=== PATIENT | male | born 1980 | race Caucasian/White ===

== ENCOUNTER → 2016-05-11 | Outpatient (CLI) | payer OTHER ==
[~2016-05-11] MED LIST: BUPIVACAINE HCL 0.25% 30 ML VIAL As Ordered ONE; ISOVUE-M 300 61% 15ML VIAL (Q9967) As Ordered ONE; LIDOCAINE 1% SDV INJ 30 ML VIAL As Ordered ONE; TRIAMCINOLONE ACETONIDE SUSP 40 MG/ML VIAL (J3301) As Ordered ONE
--- NOTE | 2016-05-19 00:35 | ECWPNPC ---
PATIENT NAME: MAT SOLORZANO : 1980 GENDER: MALE VISIT DATE: 05/11/2016 DISCHARGE DATE: 05/11/16 1135 VISIT LOCKED DATE TIME: PHYSICIAN: LISETTE WILSON RESOURCE: LISETTE WILSON REASON FOR APPOINTMENT 1. GENITOFEMORAL NB HISTORY OF PRESENT ILLNESS HISTORY OF PRESENT ILLNESS: PAIN THE PATIENT DESCRIBES THE PAIN... THE PATIENT DESCRIBES THE PAIN... PAIN THE PATIENT DESCRIBES THE PAIN... THE PATIENT DESCRIBES THE PAIN... FALL RISK SCREENING: SCREENING :NO FALLS IN THE PAST YEAR :NO FALLS IN THE PAST YEAR SCREENING :NO FALLS IN THE PAST YEAR :NO FALLS IN THE PAST YEAR CURRENT MEDICATIONS TAKING GABAPENTIN 800 MG TABLET 1 TABLET ORALLY TWO TIMES A DAY, NOTES: 05/11 5AM TAKING SOPHIE 180 MG TABLET 1 TABLET NEEDED ORALLY ONCE A DAY, NOTES: 05/11 5AM TAKING TYLENOL 1-2 TABS ORAL DAILY NEEDED, NOTES: 05/10 8PM TAKING CIALIS 5 MG TABLET 1 TABLET ORALLY DAILY, NOTES: 05/09 5AM TAKING LIDOCAINE 4 % PATCH EXTERNALLY NEEDED, NOTES: 05/09 5PM TAKING CELEBREX 100 MG CAPSULE 1 CAPSULE ORALLY TWICE A DAY, NOTES: 05/11 5AM NOT-TAKING MOBIC 15 MG TABLET 1 TABLET ORALLY ONCE A DAY MEDICATION LIST REVIEWED AND RECONCILED WITH THE PATIENT PAST MEDICAL HISTORY DIET-CONTROLLED CHOLESTEROL KIDNEY STONES BACK PAIN NECK PAIN ALLERGIES N.K.D.A. SOCIAL HISTORY GENERAL: TOBACCO USE ARE YOU A:NONSMOKER ARE YOU A:NONSMOKER LEARNING BARRIERS / SPECIAL NEEDS ORIENTED TO PLAN OF CARE: PATIENT, PAIN MANAGEMENT PATIENT, ORIENTED TO PLAN OF CARE: PATIENT, PAIN MANAGEMENT PATIENT, ORIENTED TO PLAN OF CARE: PATIENT, PAIN MANAGEMENT PATIENT, ORIENTED TO PLAN OF CARE: PATIENT, PAIN MANAGEMENT PATIENT. NEW PATIENT PAIN DIARY TODAY'S VISITNOTES FROM 0-10, WHAT LEVEL IS YOUR PAIN TODAY?0 TODAY'S VISITNOTES FROM 0-10, WHAT LEVEL IS YOUR PAIN TODAY?0 PAIN CLINIC PFS, CLERGY, PUBLIC HEALTH REFERRALS PFS REFERRAL NEEDED?NO CLERGY REFERRAL NEEDED?NO PUBLIC HEALTH REFERRAL NEEDED?NO WAS THE PROVIDER NOTIFIED OF ANY PERTINENT INFO?NO PFS REFERRAL NEEDED?NO CLERGY REFERRAL NEEDED?NO PUBLIC HEALTH REFERRAL NEEDED?NO WAS THE PROVIDER NOTIFIED OF ANY PERTINENT INFO?NO PFS REFERRAL NEEDED?NO CLERGY REFERRAL NEEDED?NO PUBLIC HEALTH REFERRAL NEEDED?NO WAS THE PROVIDER NOTIFIED OF ANY PERTINENT INFO?NO PFS REFERRAL NEEDED?NO CLERGY REFERRAL NEEDED?NO PUBLIC HEALTH REFERRAL NEEDED?NO WAS THE PROVIDER NOTIFIED OF ANY PERTINENT INFO?NO REVIEW OF SYSTEMS CONSTITUTIONAL: ANY CHANGE IN YOUR MEDICAL CONDITION? NO, NO . CHILLS NO, NO . FEVER NO, NO . INFECTION: DO YOU HAVE NEW INFECTIONS? NO, NO . DO YOU HAVE HISTORY OF MRSA? NO, NO . MUSCULOSKELETAL: ANY NEW PATTERNS OF PAIN OR NUMBNESS? NO, NO . GASTROENTEROLOGY: ANY NEW CHANGE IN BOWEL CONTROL? NO, NO . GENITOURINARY: ANY NEW CHANGE IN BLADDER CONTROL? NO, NO . IS THERE A CHANCE YOU COULD BE ? NO, NO . HEMATOLOGY/LYMPH: DO YOU TAKE ANY BLOOD THINNERS? (FOR EXAMPLE- COUMADIN, PLAVIX, AGGRENOX, PLATEL, PRADAXA, OR XARELTO) NO, NO . WHEN WAS YOUR LAST DOSE? DATE: TIME: , DATE: TIME: . NEUROLOGY: HAVE YOU FALLEN IN THE PAST 6 MONTHS? NO, NO . ANY NEW EXTREMITY NUMBNESS OR WEAKNESS? NO, NO . CARDIOLOGY: DO YOU HAVE A PACEMAKER OR DEFIBRILLATOR? NO, NO . RESPIRATORY: HAVE YOU BEEN SICK IN THE PAST WEEK? NO, NO . FEVER NO, NO . FLU LIKE SYMPTOMS? NO, NO . COUGH NO, NO . INTEGUMENTARY: DO YOU HAVE ANY RASHES OR OPEN SORES? NO, NO . ALLERGIC/IMMUNO: ARE YOU ALLERGIC TO SHELLFISH OR IV DYE? NO, NO . ANY NEW ALLERGIES? NO, NO . PSYCHIATRIC: DO YOU HAVE THOUGHTS OF HURTING YOURSELF OR SOMEONE ELSE? NO, NO . ARE YOU ABUSED, NEGLECTED, OR IN AN UNSAFE ENVIRONMENT? NO, NO . ENDOCRINOLOGY: ARE YOU DIABETIC? NO, NO . OTHER: DO YOU NEED ANY PRESCRIPTIONS? NO, NO . IF YES, PLEASE LIST: ____, ____ . ANY NEW PROBLEMS WITH YOUR MEDICATIONS? NO, NO . WHEN DID YOU LAST EAT? 05/10 NIGHT, ____ . WHEN DID YOU LAST DRINK? 05/11 0500, ____ . WHAT DID YOU LAST DRINK? BLACK COFFEE, ____ . NAME OF PERSON DRIVING YOU HOME? MARIAN, ____ . DO YOU HAVE ANY OTHER QUESTIONS OR CONCERNS NO, FLU SHOT RECEIVED IN JANUARY 2016., NO . REVIEWED BY: PROVIDER: , . VITAL SIGNS WT 195 LBS, HT 73", BMI 25.72 INDEX, BP 127/88 MM HG, HR 69 /MIN, RR 16 /MIN, TEMP 96.0 F, OXYGEN SAT % 98, SAFE IN ENV? (Y/N) Y, NA INITIALS TL 0932, REVIEWED BY: DS. 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 LISETTE WILSONASSISTANT: NONEANESTHESIA: LOCALPRE PROCEDURE NOTE: THE PATIENT HAS NEURALGIA ON THE LATERAL ASPECT OF THE RIGHT AND LEFT THIGH. PATIENT HAS HISTORY OF MERALGIA PARESTHETICA, THE PAIN IS FOLLOWING THE DISTRIBUTION OF THE RIGHT AND LEFT LATERAL FEMORAL CUTANEOUS NERVE. I EVALUATED THE PATIENT AND REVIEWED THE CHART. I REVIEWED THE RISKS, ALTERNATIVES, AND BENEFITS ASSOCIATED WITH THE RIGHT AND LEFT LATERAL FEMORAL CUTANEOUS NERVE BLOCK PROCEDURE, WITH THE PURPOSE OF PROVING ANALGESIA OVER THE AFFECTED AREA. THE PATIENT WOULD LIKE TO PROCEED AND GIVE CONSENT TO PERFORM THE PROCEDURE. THE PATIENT DENIES UNEXPLAINABLE WEIGHT LOSS, FEVER, CHILLS, OR NEW CHANGES IN URINARY OR BOWEL CONTROL. DESCRIPTION OF PROCEDURE: THE PATIENT WAS BROUGHT TO THE PROCEDURE ROOM AND PLACED IN THE SUPINE POSITION. THE RIGHT AND LEFT POSTERIOR ASPECT OF THE ILIAGIAN WAS CLEANED WITH BUTADIENE SOLUTION AND DRAPED ASEPTICALLY. PROCEDURE WAS DONE UNDER STANDARD STERILE CONDITIONS. THE TARGET POINT WAS SELECTED 2 CM MEDIAL AND CAUDAL RIGHT OF THE SUPERIOR ANTERIOR ILIAC SPINE. I USED A NERVE STIMULATOR FIRST AT 1.O VOLTS AND REDUCED TO 0.5 VOLTS WITH PATIENT FEEDBACK, PATIENT WAS HAVING APPROPRIATE STIMULATION OVER THE SELECTED AREA. I USED A 25-GAUAGE NEEDLE, 15 CCS OF BUPIVACAINE 0.125% AND KENALOG 20 MILLIGRAMS WAS INJECTED. THEN I PROCEEDED TO THE OTHER SIDE OF THE BODY. TARGET POINT WAS SELECTED 2 CM MEDIAL AND CAUDAL RIGHT SUPERIOR ANTERIOR ILIAC SPINE. I USED A 25-GAUAGE NEEDLE, 15 CCS OF BUPIVACAINE 0.125% AND KENALOG 20 MILLIGRAMS WAS INJECTED. THERE WAS NO EVIDENCE OF BLOOD, PARESTHESIA OR CEREBROSPINAL FLUID DURING THE PROCEDURE. THE PATIENT WAS SENT TO THE RECOVERY ROOM. THE PATIENT WAS MOVING THE EXTREMITIES AND DOING WELL. THERE WAS NO COMPLICATION DURING THE PROCEDURE.POST PROCEDURE NOTE: THE PATIENT WILL BE SEEN IN A FOLLOW UP IN THE NEXT FEW WEEKS. PATIENT WILL BE REFERRED TO [facility] FOR A CRYOABLATION THERAPY CONSULT. INSTRUCTIONS WERE GIVEN, QUESTIONS WERE ANSWERED, AND THE PATIENT EXPRESSED UNDERSTANDING AND AGREES WITH THE PLAN. INSTRUCTIONS WERE GIVEN, QUESTIONS WERE ANSWERED, PATIENT REPORTS UNDERSTANDING AND AGREES WITH THE PLAN. I, KARIME DAVE, DOCUMENTED THE ABOVE INFORMATION ACTING A SCRIBE FOR DR. WILSON. I HAVE REVIEWED THE ABOVE DOCUMENT, WRITTEN BY KARIME DAVE SCRIBE AND I VERIFY THAT IT IS ACCURATE. DIAGNOSTIC IMAGING [facility] FLUORO GUIDANCE (PAIN) (ORDER CANCELLED)[id number] PROCEDURE CODES 98255 N BLOCK OTHER PERIPHERAL FOLLOW UP 3 WEEKS ELECTRONICALLY SIGNED BY LISETTE WILSON MD ON 05/18/2016 AT 06:21 PM EST DISCLAIMER : THIS IS A VISIT SUMMARY EXTRACTED FROM THE [employer] CHART. IT IS NOT A COPY OF THE [employer] PROGRESS NOTE. MTDD
== END ==
LOC: M PAIN 09:40
PROVIDERS: ATTEND Anesthesiology
DX: G57.13 Meralgia paresthetica, bilateral lower limbs (principal); E11.9 Type 2 diabetes mellitus without complications; Z79.899 Other long term (current) drug therapy
CPT/HCPCS: 64450; J3301; Q9967

== ENCOUNTER → 2016-05-26 | Outpatient (CLI) | payer OTHER ==
--- NOTE | 2016-06-15 01:23 | ECWPNPC ---
PATIENT NAME: MAT GARY : 1980 GENDER: MALE VISIT DATE: 05/26/2016 DISCHARGE DATE: 05/26/16 1536 VISIT LOCKED DATE TIME: PHYSICIAN: SMITH ECHEVERRIA RESOURCE: SMITH ECHEVERRIA REASON FOR APPOINTMENT 1. POST PROCEDURE-FEMORAL NERVE BLOCK HISTORY OF PRESENT ILLNESS TODAY'S VISIT: NOTES: S/P BILATERAL GENITOFEMORAL NERVE BLOCK COMPLETED ON 05/15/16.HAD SOME INCREAS IN PAIN IMMEDIATELY AFTER PROCEDURE AND HAD NUMBNESS INTO INNER THIGH FOR FIRST DAY AFTER PROCEDURE.HAD A FALL HAD TROUBLE RAISING LEFT LEG. THIS IMPROVED AFTER 24 HOURS. RATES PAIN TODAY 0/10. . CURRENT MEDICATIONS TAKING GABAPENTIN 800 MG TABLET 1 TABLET ORALLY TWO TIMES A DAY TAKING SOPHIE 180 MG TABLET 1 TABLET NEEDED ORALLY ONCE A DAY TAKING CIALIS 5 MG TABLET 1 TABLET ORALLY DAILY TAKING LIDOCAINE 4 % PATCH EXTERNALLY NEEDED ON 12 HOURS OFF 12 HOURS TAKING CELEBREX 100 MG CAPSULE 1 CAPSULE ORALLY TWICE A DAY NOT-TAKING TYLENOL 1-2 TABS ORAL DAILY NEEDED NOT-TAKING MOBIC 15 MG TABLET 1 TABLET ORALLY ONCE A DAY MEDICATION LIST REVIEWED AND RECONCILED WITH THE PATIENT PAST MEDICAL HISTORY DIET-CONTROLLED CHOLESTEROL KIDNEY STONES BACK PAIN NECK PAIN ALLERGIES ENVIRONMENTAL: WHEEZING, NASAL CONGESTION: ALLERGY SURGICAL HISTORY LEFT CLAVICLE REPAIR 10/2014 LEFT CLAVICLE HARDWARE REMOVED 05/2015 VASECTOMY HOSPITALIZATION/MAJOR DIAGNOSTIC PROCEDURE SURGERIES REVIEW OF SYSTEMS FOLLOW-UP ROS: GENERAL: NOTES SIGNIFICANT FATIGUE . VITAL SIGNS WT 195 LBS, HT 73", BMI 25.72 INDEX, BP 139/81 MM HG, HR 105 /MIN, RR 18 /MIN, TEMP 95.0 F, OXYGEN SAT % 97%, NA INITIALS SC14:37, REVIEWED BY: LS05/26/16 1448 HEART RATE RECHECKED 96/MINUTE, REGULAR. STATES IS SLEEP-DEPRIVED AND HAS BEEN. EXAMINATION GENERAL EXAMINATION: GENERAL APPEARANCE:WELL GROOMED. PSYCHALERT , APPROPRIATE MOOD AND AFFECT , ORIENTED X 3 , GOOD EYE CONTACT. HEENT:NORMOCEPHALIC, NO LYMPHADENOPATHY, NO THYROMEGLY. LUNGS:CLEAR TO AUSCULTATION BILATERALLY, NO WHEEZES, RALES, OR RHONCHI. HEART:HEART RATE REGULAR, NORMAL S1S2, NO MURMURS, CLICK OR RUBS. ABDOMEN:SOFT AND NOT TENDER, BOWEL SOUNDS: NORMAL AND PRESENT IN ALL QUADRANTS. NO ILIOINGUINAL PAIN. MUSCULOSKELETAL:MUSCLE STRENGTH TESTING 5/5 BILATERAL LOWER EXTREMITIES. HOUT DIFFICULTY. MILD TENDERNESS WITH PALPATION OVER RIGHT SIJ. POINT TENDERNESS OVER RIGHT INGUINAL REGION. HYPERSENSITIVITY OVER RIGHT> LEFT LATERAL THIGH WITH AREAS OF PATCHY DECREASED SENSATION PARTICULARLY ALONG DISTAL QUADRICEP. . ASSESSMENTS MERALGIA PARESTHETICA OF BOTH LOWER EXTREMITIES - G57.13 (PRIMARY) TREATMENT MERALGIA PARESTHETICA OF BOTH LOWER EXTREMITIES FEMORAL NERVE SMIHT CHADWICK 05/26/2016 3:16:39 PM > BILATERAL GENITOFEMORAL BLOCK PREVENTIVE MEDICINE PAIN CLINIC TEACHING: PROCEDURE TEACHING PRE PROCEDURE INSTRUCTIONS REVIEWED WITH PT. VERBALIZED UNDESTANDING.. PROCEDURE CODES FA211 ESTABILISHED PATIENT [facility] FACILITY CHARGE DISPOSITION & COMMUNICATION FOLLOW UP SCEDULE FOR BLOCK 06/08 OR (REASON: HAS AUTH FOR GENITOFEM BLOCK BILATERAL) ELECTRONICALLY SIGNED BY RACHEAL SHEPHERD ON 06/14/2016 AT 11:53 AM EST DISCLAIMER : THIS IS A VISIT SUMMARY EXTRACTED FROM THE [employer] CHART. IT IS NOT A COPY OF THE [employer] PROGRESS NOTE. EPIFANIO
== END ==
LOC: M PAIN 14:40
PROVIDERS: ATTEND Nurse Practitioner Family
DX: G57.13 Meralgia paresthetica, bilateral lower limbs (principal); M54.2 Cervicalgia; G89.29 Other chronic pain; Z79.899 Other long term (current) drug therapy; Z91.09 Other allergy status, other than to drugs and biological substances

== ENCOUNTER → 2016-06-01 | Outpatient (CLI) | payer OTHER ==
--- NOTE | 2016-06-10 23:28 | ECWPNPC ---
PATIENT NAME: MAT GARY : 1980 GENDER: MALE VISIT DATE: 06/01/2016 DISCHARGE DATE: 06/01/16 1620 VISIT LOCKED DATE TIME: PHYSICIAN: LISETTE WILSON RESOURCE: LISETTE WILSON REASON FOR APPOINTMENT 1. BILATERAL GENITOFEMORAL BLOCK HISTORY OF PRESENT ILLNESS HISTORY OF PRESENT ILLNESS: PAIN THE PATIENT DESCRIBES THE PAIN... FALL RISK SCREENING: SCREENING :NO FALLS IN THE PAST YEAR CURRENT MEDICATIONS TAKING GABAPENTIN 800 MG TABLET 1 TABLET ORALLY TWO TIMES A DAY, NOTES: 06/01/16@0530 TAKING SOPHIE 180 MG TABLET 1 TABLET NEEDED ORALLY ONCE A DAY, NOTES: 06/01/16@0530 TAKING CIALIS 5 MG TABLET 1 TABLET ORALLY DAILY, NOTES: 05/31/16@0530 TAKING LIDOCAINE 4 % PATCH EXTERNALLY NEEDED ON 12 HOURS OFF 12 HOURS, NOTES: 1 WEEK AGO TAKING CELEBREX 100 MG CAPSULE 1 CAPSULE ORALLY TWICE A DAY, NOTES: 06/01/16@0530 NOT-TAKING TYLENOL 1-2 TABS ORAL DAILY NEEDED NOT-TAKING MOBIC 15 MG TABLET 1 TABLET ORALLY ONCE A DAY MEDICATION LIST REVIEWED AND RECONCILED WITH THE PATIENT PAST MEDICAL HISTORY DIET-CONTROLLED CHOLESTEROL KIDNEY STONES BACK PAIN NECK PAIN ALLERGIES ENVIRONMENTAL: WHEEZING, NASAL CONGESTION: ALLERGY SOCIAL HISTORY GENERAL: TOBACCO USE ARE YOU A:NONSMOKER LEARNING BARRIERS / SPECIAL NEEDS ORIENTED TO PLAN OF CARE: PATIENT, PAIN MANAGEMENT PATIENT, ORIENTED TO PLAN OF CARE: PATIENT, PAIN MANAGEMENT PATIENT. NEW PATIENT PAIN DIARY TODAY'S VISITNOTES FROM 0-10, WHAT LEVEL IS YOUR PAIN TODAY?0 PAIN CLINIC PFS, CLERGY, PUBLIC HEALTH REFERRALS PFS REFERRAL NEEDED?NO CLERGY REFERRAL NEEDED?NO PUBLIC HEALTH REFERRAL NEEDED?NO WAS THE PROVIDER NOTIFIED OF ANY PERTINENT INFO?NO PFS REFERRAL NEEDED?NO CLERGY REFERRAL NEEDED?NO PUBLIC HEALTH REFERRAL NEEDED?NO WAS THE PROVIDER NOTIFIED OF ANY PERTINENT INFO?NO REVIEW OF SYSTEMS CONSTITUTIONAL: ANY CHANGE IN YOUR MEDICAL CONDITION? NO . CHILLS NO . FEVER NO . INFECTION: DO YOU HAVE NEW INFECTIONS? NO . DO YOU HAVE HISTORY OF MRSA? NO . MUSCULOSKELETAL: ANY NEW PATTERNS OF PAIN OR NUMBNESS? NO . GASTROENTEROLOGY: ANY NEW CHANGE IN BOWEL CONTROL? NO . GENITOURINARY: ANY NEW CHANGE IN BLADDER CONTROL? NO . IS THERE A CHANCE YOU COULD BE ? NO . HEMATOLOGY/LYMPH: DO YOU TAKE ANY BLOOD THINNERS? (FOR EXAMPLE- COUMADIN, PLAVIX, AGGRENOX, PLATEL, PRADAXA, OR XARELTO) NO . WHEN WAS YOUR LAST DOSE? DATE: TIME: . NEUROLOGY: HAVE YOU FALLEN IN THE PAST 6 MONTHS? NO . ANY NEW EXTREMITY NUMBNESS OR WEAKNESS? NO . CARDIOLOGY: DO YOU HAVE A PACEMAKER OR DEFIBRILLATOR? NO . RESPIRATORY: HAVE YOU BEEN SICK IN THE PAST WEEK? NO . FEVER NO . FLU LIKE SYMPTOMS? NO . COUGH NO . INTEGUMENTARY: DO YOU HAVE ANY RASHES OR OPEN SORES? NO . ALLERGIC/IMMUNO: ARE YOU ALLERGIC TO SHELLFISH OR IV DYE? NO . ANY NEW ALLERGIES? NO . PSYCHIATRIC: DO YOU HAVE THOUGHTS OF HURTING YOURSELF OR SOMEONE ELSE? NO . ARE YOU ABUSED, NEGLECTED, OR IN AN UNSAFE ENVIRONMENT? NO . ENDOCRINOLOGY: ARE YOU DIABETIC? NO . OTHER: DO YOU NEED ANY PRESCRIPTIONS? NO . IF YES, PLEASE LIST: ____ . ANY NEW PROBLEMS WITH YOUR MEDICATIONS? NO . WHEN DID YOU LAST EAT? ____05/31/16 . WHEN DID YOU LAST DRINK? ____0530 . WHAT DID YOU LAST DRINK? ____BLACK COFFEE . NAME OF PERSON DRIVING YOU HOME? ____ . DO YOU HAVE ANY OTHER QUESTIONS OR CONCERNS NO . REVIEWED BY: PROVIDER: . VITAL SIGNS WT 195 LBS, HT 73", BMI 25.72 INDEX, BP 157/82 MM HG, HR 81 /MIN, RR 16 /MIN, TEMP 96.1 F, OXYGEN SAT % 98, NA INITIALS TL 1325, REVIEWED BY: VD. PROCEDURES PRE PROCEDURE DIAGNOSIS: MERALGIA PARESTHETICAPOST PROCEDURE DIAGNOSIS: MERALGIA PARESTHETICAPROCEDURE: BILATERAL LATERAL FEMORAL CUTANEOUS NERVE BLOCK SURGEON: DR. LISETTE WILSONASSISTANT: NONEANESTHESIA: LOCALPRE PROCEDURE NOTE: THE PATIENT HAS NEURALGIA ON THE LATERAL ASPECT OF THE RIGHT AND LEFT THIGH. PATIENT HAS HISTORY OF MERALGIA PARESTHETICA, THE PAIN IS FOLLOWING THE DISTRIBUTION OF THE RIGHT AND LEFT LATERAL FEMORAL CUTANEOUS NERVE. I EVALUATED THE PATIENT AND REVIEWED THE CHART. I REVIEWED THE RISKS, ALTERNATIVES, AND BENEFITS ASSOCIATED WITH THE RIGHT AND LEFT LATERAL FEMORAL CUTANEOUS NERVE BLOCK PROCEDURE, WITH THE PURPOSE OF PROVING ANALGESIA OVER THE AFFECTED AREA. THE PATIENT WOULD LIKE TO PROCEED AND GIVE CONSENT TO PERFORM THE PROCEDURE. THE PATIENT DENIES UNEXPLAINABLE WEIGHT LOSS, FEVER, CHILLS, OR NEW CHANGES IN URINARY OR BOWEL CONTROL. DESCRIPTION OF PROCEDURE: THE PATIENT WAS BROUGHT TO THE PROCEDURE ROOM AND PLACED IN THE SUPINE POSITION. THE RIGHT AND LEFT POSTERIOR ASPECT OF THE ILIAGIAN WAS CLEANED WITH BUTADIENE SOLUTION AND DRAPED ASEPTICALLY. PROCEDURE WAS DONE UNDER STANDARD STERILE CONDITIONS. THE TARGET POINT WAS SELECTED 2 CM MEDIAL AND CAUDAL RIGHT OF THE SUPERIOR ANTERIOR ILIAC SPINE. I USED A 25-GAUGE NEEDLE, 15 CCS OF BUPIVACAINE 0.125% AND KENALOG 20 MILLIGRAMS WAS INJECTED. THEN I PROCEEDED TO THE OTHER SIDE OF THE BODY. TARGET POINT WAS SELECTED 2 CM MEDIAL AND CAUDAL LEFT SUPERIOR ANTERIOR ILIAC SPINE. I USED A 25-GAUGE NEEDLE, 15 CCS OF BUPIVACAINE 0.125% AND KENALOG 20 MILLIGRAMS WAS INJECTED. THERE WAS NO EVIDENCE OF BLOOD, PARESTHESIA OR CEREBROSPINAL FLUID DURING THE PROCEDURE. THE PATIENT WAS SENT TO THE RECOVERY ROOM. THE PATIENT WAS MOVING THE EXTREMITIES AND DOING WELL. THERE WAS NO COMPLICATION DURING THE PROCEDURE.POST PROCEDURE NOTE: THE PATIENT WILL BE SEEN IN A FOLLOW UP IN THE NEXT FEW WEEKS. INSTRUCTIONS WERE GIVEN, QUESTIONS WERE ANSWERED, AND THE PATIENT EXPRESSED UNDERSTANDING AND AGREES WITH THE PLAN. INSTRUCTIONS WERE GIVEN, QUESTIONS WERE ANSWERED, PATIENT REPORTS UNDERSTANDING AND AGREES WITH THE PLAN. I, KARIME DAVE, DOCUMENTED THE ABOVE INFORMATION ACTING A SCRIBE FOR DR. WILSON. I HAVE REVIEWED THE ABOVE DOCUMENT, WRITTEN BY KARIME DAVE SCRIBE AND I VERIFY THAT IT IS ACCURATE. PROCEDURE CODES 91334 N BLOCK OTHER PERIPHERAL DISPOSITION & COMMUNICATION FOLLOW UP 3 WEEKS ELECTRONICALLY SIGNED BY LISETTE WILSON MD ON 06/10/2016 AT 09:09 PM EST DISCLAIMER : THIS IS A VISIT SUMMARY EXTRACTED FROM THE [employer] CHART. IT IS NOT A COPY OF THE [employer] PROGRESS NOTE. EPIFANIO
== END ==
LOC: M PAIN 13:20
PROVIDERS: ATTEND Anesthesiology
DX: G57.13 Meralgia paresthetica, bilateral lower limbs (principal); J30.89 Other allergic rhinitis; Z79.899 Other long term (current) drug therapy
CPT/HCPCS: 64450; J3301; Q9967

== ENCOUNTER → 2017-08-08 | Outpatient (CLI) | payer OTHER | LOC: M PAIN 14:15 | DX: G57.13 Meralgia paresthetica, bilateral lower limbs (principal); J30.89 Other allergic rhinitis; Z79.899 Other long term (current) drug therapy | CPT/HCPCS: G0463 ==

== ENCOUNTER → 2017-08-23 | Outpatient (CLI) | payer OTHER ==
[~2017-08-23] MED LIST changes: +BUPIVACAINE HCL 0.25% 30 ML VIAL As Ordered; -BUPIVACAINE HCL 0.25% 30 ML VIAL As Ordered ONE; +ISOVUE-M 300 61% 15ML VIAL (Q9967) As Ordered; -ISOVUE-M 300 61% 15ML VIAL (Q9967) As Ordered ONE; +LIDOCAINE 1% SDV INJ 30 ML VIAL As Ordered; -LIDOCAINE 1% SDV INJ 30 ML VIAL As Ordered ONE; +TRIAMCINOLONE ACETONIDE SUSP 40 MG/ML VIAL (J3301) As Ordered; -TRIAMCINOLONE ACETONIDE SUSP 40 MG/ML VIAL (J3301) As Ordered ONE; +diazePAM 5 MG TAB As Ordered
== END ==
LOC: M PAIN 10:15
DX: G57.13 Meralgia paresthetica, bilateral lower limbs (principal); M54.2 Cervicalgia; J30.9 Allergic rhinitis, unspecified; Z87.442 Personal history of urinary calculi; Z79.899 Other long term (current) drug therapy
CPT/HCPCS: J3301

== ENCOUNTER → 2017-09-20 | Outpatient (CLI) | payer OTHER | LOC: M PAIN 13:45 | DX: G57.13 Meralgia paresthetica, bilateral lower limbs (principal); E78.00 Pure hypercholesterolemia, unspecified; J30.89 Other allergic rhinitis; Z79.899 Other long term (current) drug therapy | CPT/HCPCS: G0463 ==

== ENCOUNTER → 2017-10-02 | Outpatient (CLI) | payer OTHER ==
[~2017-10-02] MED LIST changes: -ISOVUE-M 300 61% 15ML VIAL (Q9967) As Ordered; +oxyCODONE 5MG TAB As Ordered
== END ==
LOC: M PAIN 08:30
DX: G57.13 Meralgia paresthetica, bilateral lower limbs (principal); Z87.442 Personal history of urinary calculi; M54.2 Cervicalgia; Z79.899 Other long term (current) drug therapy; J30.9 Allergic rhinitis, unspecified
CPT/HCPCS: J3301

== ENCOUNTER → 2017-11-09 | Outpatient (CLI) | payer OTHER | LOC: M PAIN 14:00 | DX: G57.13 Meralgia paresthetica, bilateral lower limbs (principal); E78.00 Pure hypercholesterolemia, unspecified; J30.89 Other allergic rhinitis; Z79.899 Other long term (current) drug therapy | CPT/HCPCS: G0463 ==

== ENCOUNTER → 2023-07-02 | Outpatient (REF) | LOC: M PLAIMG 09:11 | PROVIDERS: ATTEND Internal Medicine | DX: R52 Pain, unspecified (principal) ==